=== PATIENT | male | born 1970 | race African-American/Black ===

== ENCOUNTER 2018-08-11 11:19 | Emergency (ER) | payer OTHER ==
[~2018-08-11] VITALS: Ht 185.4 cm; Wt 154.2 kg
[2018-08-11 11:30] VITALS: BP 134/77; Ht 185.4 cm; Wt 154.2 kg
== END 2018-08-11 12:31 | disposition home or self-care (01) ==
LOC: ED 11:19
DX: L97.919 Non-pressure chronic ulcer of unspecified part of right lower leg with unspecified severity (principal); I12.0 Hypertensive chronic kidney disease with stage 5 chronic kidney disease or end stage renal disease; N18.6 End stage renal disease; F17.210 Nicotine dependence, cigarettes, uncomplicated; Z99.2 Dependence on renal dialysis
CPT/HCPCS: 90715

== ENCOUNTER 2018-11-10 07:13 | Inpatient (IN) | payer OTHER, MEDICAID ==
[~2018-11-10] VITALS: Ht 185.4 cm; Wt 156.3 kg
[2018-11-10 07:17] VITALS: Ht 185.4 cm; Wt 156.3 kg
--- NOTE | 2018-11-10 07:27 | NUR ---
PT WAS B/B AMBULANCE FROM . FOR SHUNT BLEEDING ON RT ARM. PT WAS A/OX3. NO OTHER ACUTE DISTRESS.
--- NOTE | 2018-11-10 08:10 | NUR ---
HARD STICK. SL 24G ESTABLISHED ON MAL. MORPHINE WITH ZOFRAN IVP GIVEN FOR PAIN.
[2018-11-10 08:13] LABS: BASOPHIL % 0.1 % (0-2); PLATELET COUNT 158 x10^3mcL (130-400)
[2018-11-10 08:18] LABS: RED CELL DISTRIBUTION WIDTH 17.7 % (11.5-14.5)
[2018-11-10 08:30] LABS: BILIRUBIN TOTAL 0.39 mg/dL (0.20-1.00); CALCIUM 7.9 mg/dL (8.5-10.1); CARBON DIOXIDE 26.7 mmol/L (21-32); TOTAL PROTEIN, SERUM 7.4 g/dL (6.4-8.2)
[2018-11-10 08:39] LABS: ALBUMIN 3.2 g/dL (3.4-5.0)
[2018-11-10 08:40] LABS: CREATININE SERUM 13.9 mg/dL (0.7-1.3); POTASSIUM SERUM 5.9 mmol/L (3.5-5.1)
[2018-11-10] MEDS ORDERED: AURYXIA1 GM PO (09:48)
[2018-11-10] MEDS ORDERED: ASPIR 8181 MG PO (09:48)
[2018-11-10] MEDS ORDERED: PROA PO (09:49)
[2018-11-10] MEDS ORDERED: ELIQUIS5 MG PO (09:50)
[2018-11-10] MEDS ORDERED: DIAZEPAM5 MG PO (09:50)
[2018-11-10] MEDS ORDERED: FOSRENOL500 MG PO (09:51)
--- NOTE | 2018-11-10 10:13 | NUR ---
REPORT GIVEN TO [facility]. PT WAS ADMINISTERED TO TELE [id number].
--- NOTE | 2018-11-10 10:35 | NUR ---
RECEIVD PT FROM ED VIA JEANNA, ASSISTED BY NURSING STAFF AND ARIEL, PT IN NO ACUTE DISTRESS, AXOX4, VERBAL, PASHTO, ABLE TO MAKE NEEDS KNOWN, CALM AND COPPERATIVE AT THIS TIME, PERRLA, NO REDNESS/DRAINAGE, RESP PERI, NO SOB/COUGH, DIM BLL, 2L/MIN, NC, CHEST RISE SYMMETRICALLY, DENIED CP/PRESSURE/EVANS, DENIED N/V/D, ABD ROUND AND NON-TENDER TO TOUCH, BS ACTIVE X 4, LAST BM TODAY 11/10/18, ANURIA, HD TThS, SHUNT TO (R) THRILL/BRUIT (+), IV TO (L) AC PATENT AND NO INFILTRATION, PALP PULSES, CAP REFILL < 3S, SKIN D/W/C, USING WC FOR AMBULATION, WC BROGHT FROM HOME AT BEDSIDE, V/S: 175/102 (138), 97% AT 2L/MIN, 18, 98.1, 95, 6/10 PAIN GENERAL MUSCLE TENDON PAIN, DULL, ABLE TO MOVE ALL EXTREMITIES, ALL NEEDS ADDRESSED AT THIS TIME, SAFETY MONITOR, CONTINUE TO MONITOR
[2018-11-10 11:12] VITALS: BP 175/102
[2018-11-10 11:44] LABS: T3 TOTAL 0.98 ng/mL
[2018-11-10 11:45] VITALS: BP 132/76
--- NOTE | 2018-11-10 11:48 | NUR ---
PT IN NO ACUTE DISTRESS, PAIN /10 GENERAL MUSCLE TENDON PAIN, PRN MED MEDICATED IVP PER MD ORDER VIA EMAR, TAKEN WELL, NO SE NOTED AT THIS TIME, CONTINUE TO MONITOR
[2018-11-10 12:04] LABS: FREE T4 0.93 ng/dL (0.76-1.46); FREE THYROXINE INDEX 2.9 ug/dL (1.4-4.5); T4(THYROXINE) 8.2 ug/dL (4.7-13.3)
--- NOTE | 2018-11-10 12:33 | NUR ---
PT REFUSED BLOOD DRAW FOR LAB AND BLOOD CULTURE ORDER, AWARE OF RISK AND BENEFITS, STILL REFUSED, MD AND CHARGE NURSE MADE AWARE, FIANCE AT BEDSIDE
--- NOTE | 2018-11-10 14:02 | NUR ---
PT HAD HD AT BEDSIDE, TAKEN WELL AT THIS MOMENT
--- NOTE | 2018-11-10 16:28 | NUR ---
PT FINISHED HD, IN NO ACUTE DISTRESS, NO ACTIVE BLEEDING, BP-132/83 (99), HR-86, 97% AT 2L/MIN, NC, 18, 98.1, 10, TOLERABLE PAIN AT THIS TIME
[2018-11-10 17:24] VITALS: BP 151/86
--- NOTE | 2018-11-10 17:30 | NUR ---
PT IN BED, IN NO ACUTE DISTRESS, HD DONE, 1800CC REMOVED DURING 2.5HRS, PT REFUSED TO BE DIALIZED TOTAL 4HRS PER MD ORDER, SAID WILL HAVE ANOTHER HD TOMORROW, MADE AWARE, CHARGE NURSE GEORGE MADE AWARE
--- NOTE | 2018-11-10 18:16 | NUR ---
PT IN BED, IN NO ACUTE DISTRESS, NO ATIVE BLEEDING FROM HD SITE TO (R) SHUNT, THRILL/BRUIT (+), IV PATENT, NO INFILTRATION NOTED, RESP EVEN, NO SOB/COUGH, TELE, NSR, ABD ROUND AND NONN-TENDER TO TOUCH, PALP PULSES, CAP REFIL < 3S, ABLE TO MAKE NEEDS KNOWN, DRESSING CDI, ALL NEEDS ADDRESED AT THIS TIME, SAFETY MONITOR, WILL ENDORSE TO ONCOMING RN
--- NOTE | 2018-11-10 19:50 | NUR ---
PT IS A/O x4. ON TELE #11, NSR. DENIES ANY CHEST PAIN OR PRESSURE. PULSES ARE PRESENT. TRACE EDEMA NOTED ON BLE. AV SHUNT ON JANENE, THRILL AND BRUIT PRESENT. LUNGS CLEAR BUT DIMINISHED AT BASES. ON 2L NC. DENIES ANY SOB. EQUAL CHEST RISE AND FALL. NO SIGN OF RESP DISTRESS. BOWEL SOUNDS PRESENT x4. PER PT HE IS ANURIC. HAS PERSONAL WHEELCHAIR AT BEDSIDE. SKIN INTACT, OLD SCAR NOTED ON LLE. DENIES PAIN AT THIS TIME. SALINE LOCKED ON LAC, INTACT AND PATENT. BED IS AT LOWEST SETTING. CALL LIGHT WITHING REACH. WILL CONTINUE TO MONITOR.
[2018-11-10 20:29] VITALS: BP 150/89
[2018-11-11 05:38] VITALS: BP 153/94
--- NOTE | 2018-11-11 06:51 | NUR ---
PT IS RESTING IN BED. WAS COMPLAINING OF PAIN, PRN MEDICATION WAS GIVEN. PT STATES THE PAIN IS DECLINING TO A 5/10. NO ACUTE EVENT OCCURED AT NIGHT. BED IS AT LOWEST SETTING. CALL LIGHT WITHIN REACH. WILL ENDORSE TO AM NURSE.
--- NOTE | 2018-11-11 07:09 | NUR ---
RECEIVED REPORT FROM RAMON RN, PT IN NO ACUTE DISTRESS
--- NOTE | 2018-11-11 07:30 | NUR ---
PT IN BED, VERBAL, ABLE TO MAKE NEEDS KNOWN, PERRLA, DENIED CP/PRESSURE/PAIN, DENIED N/V/D, RESP EVEN, NO SOB/COUGH, DIM BLL, 2L/MIN NC, 96%, TELE, NSR, ABR ROUND AND NON-TENDER TO TOUCH, CAP REFILL < 3S, PALP PULSES, AMBULATORY W/ ASSIST AND WC, ANURIA, AV SHUNT TO (R) ARM PATENT, THRILL/BRUIT (+), IV PATENT AND NO INFILTRATION NOTED, HD TThS, FLUID RESTRICTION 1200ML/24HR, RENAL DIET, ALL NEEDS ADDRESSED AT THIS TIME, SAFETY MONITOR, CONTINUE TO MONITOR
[2018-11-11 08:05] VITALS: BP 130/95
--- NOTE | 2018-11-11 08:59 | NUR ---
PT IN NO ACUTE DISTRESS, AM MED GIVEN PER MD ORDER VAI EMAR, TAKEN WELL, NO ASE NOTED AT THIS TIME, CONTINUE TO MONITOR
--- NOTE | 2018-11-11 09:16 | NUR ---
PT CONCERNS ABOUT HD TODAY D/T FLUID OVERLOAD FEELING AT THIS MOMENT, [facility] CALLED AND TALKED TO CARISSA, SAID WILL CALL BACK WHEN HAVE AVAILABLE STAFF FOR HD COURTNEY, CHARGE NURSE GEORGE MADE AWARE
--- NOTE | 2018-11-11 10:28 | NUR ---
HD RN AT BEDSIDE, PT HAD HD NOW, VERIFIED W/ DR LORENZANA R/T LIDOCAIN IM INSTEAD OF TOPICALPER PT REQUEST PRIOR HD, VERIFIED BY PHARMACIST, PT IN NO ACUTE DISTRESS, LAB MADE AWARE TO COLLECT BLOOD FOR LAB ORDER W/ HD RN D/T PT REFUSED LAB THIS AM AND SAID TRISHA HAVE LAB DRAW DURING DIALYSIS, PT MADE AWARE, CHARGE NURSE GEORGE MADE AWARE
[2018-11-11 10:48] LABS: CALCIUM 7.6 mg/dL (8.5-10.1); CARBON DIOXIDE 26.1 mmol/L (21-32)
[2018-11-11 10:53] LABS: POTASSIUM SERUM 5.9 mmol/L (3.5-5.1)
[2018-11-11 10:54] LABS: CREATININE SERUM 13.6 mg/dL (0.7-1.3)
[2018-11-11 11:55] VITALS: BP 135/90
--- NOTE | 2018-11-11 12:59 | NUR ---
PT FINISHED HD, 3000ML FLUID REMOVED, TOLERATED WELL, IN NO ACUTE DISTRESS, REPORTED GENERALIZED PAIN, 10/20, MEDICATED PER PRN EMAR, TAKEN WELL, CONTINUE TO MONITOR
--- NOTE | 2018-11-11 14:41 | NUR ---
PT SLEEPING IN BED, IN NO APPARNT DISTRESS, ALL NEEDS ADDRESSED AT THIS TIME, SAFETY WATCHED, CONTINUE TO MONITOR
[2018-11-11 16:50] VITALS: BP 142/83
[2018-11-11 17:40] LABS: CALCIUM 8.2 mg/dL (8.5-10.1); CARBON DIOXIDE 30.9 mmol/L (21-32); POTASSIUM SERUM 5.3 mmol/L (3.5-5.1)
[2018-11-11 17:45] LABS: CREATININE SERUM 11.3 mg/dL (0.7-1.3)
--- NOTE | 2018-11-11 18:09 | NUR ---
PT IN BED, IN NO ACUTE DISTRESS, FAMILY AT BEDSIDE, VERBAL, ABLE TO MAKE NEEDS KNOWN, DENIED CP/PRESSURE/EVANS, DENIED N/V/D, RESP EVEN, NO SOB/COUGH, 2L/MIN, NC, 95%, TELE #11, ABD ROUND AND NON-TENDER TO TOUCH, AMULATORY W/ ASSIST AND WC, ANURIA, AV SHUNT PATENT, THRILL/BRUIT (+), IV PATENT AND NO INFILTRATION NOTED, ALL NEEDS ADDRESSED AT THIS TIME, SAFETY PROTOCOL FOLLOWED, WILL ENDORSE TO ONCOMING RN
--- NOTE | 2018-11-11 20:04 | NUR ---
SHIFT REASSESSMENT DONE.PATIENT ALERT AND ORIENTED.NOT IN RESP DISTRESS.O2 AT 2 LITERS.AMBULATORY,GEN WEAKNESS.HEPLOCC LAC 24 GUAGE.TELE 11 NSR.SKIN INTACT.TRACE EDEMA BLE.AV SHUNT R ARM,HD T TH SAT.STRICT I AND O.HAD HD 11/10 1800 ML OUT.TODAY 3000 ML OUT.CALL LIGHT IN REACH.
[2018-11-11 20:35] VITALS: BP 143/99
--- NOTE | 2018-11-11 21:12 | NUR ---
O2 SAT CHECKED 95% AT 2 LITERS,GIVEN PM MEDS,WANTING VALIUM PO FOR SLEEP.ALSO WANTING DILAUDID AFTER MIDNIGHT,Q 6 HOURS PRN.FAMILY WAS HERE,VERY SUPPORTIVE OF CARE.CALL LIGHT IN REACH.
--- NOTE | 2018-11-12 00:37 | NUR ---
PAIN MED GIVEN PRN Q 6 HOURS.SAYS PAIN IS ALL OVER.WANTED HIS ROOM SHUT.CALL LIGHT IN REACH.
--- NOTE | 2018-11-12 01:00 | NUR ---
PATIENT CALLED,WANTING HIS PAIN MED,REMINDED I JUST GIVE IT TO HIM,JUST FEW MINUTES AGO.REALITY AWARENESS GIVEN,HE FORGOT HE SAYS THAT I JUST GIVE IT TO HIM.
[2018-11-12 05:27] VITALS: BP 152/91
--- NOTE | 2018-11-12 05:57 | NUR ---
PATIENT I AND O MEASURED.ANURIC,STRICT I AND O.WILL ENDORSE TO NEXT SHIFT.WANTING DILAUDID BEFORE 7 AM.
[2018-11-12 06:29] LABS: CALCIUM 8.4 mg/dL (8.5-10.1); CARBON DIOXIDE 31.1 mmol/L (21-32); MAGNESIUM 2.4 mg/dL (1.8-2.4)
[2018-11-12 06:39] LABS: BASOPHIL % 0.3 % (0-2); PLATELET COUNT 152 x10^3mcL (130-400)
[2018-11-12 07:18] LABS: CREATININE SERUM 13.8 mg/dL (0.7-1.3); PHOSPHOROUS 9.6 mg/dL (2.5-4.9)
[2018-11-12 07:34] LABS: RED CELL DISTRIBUTION WIDTH 18.1 % (11.5-14.5)
--- NOTE | 2018-11-12 07:39 | NUR ---
RECEIVED IN NO RESP. DISTRESS. AWAKE AND ALERT. BP SLIGHTLY ELEVETED BUT PT ASYMPTOMATIC. DENIES CHEST DISCOMFORT. HL PATENT. CALL LIGHT WITHIN REACH. WILL CONTINUE WITH PLAN OF CARE.
--- NOTE | 2018-11-12 07:45 | NUR ---
RECEIVED ABNORMAL LAB RESULTS OF K+ 6.0,BUN 65 AND CREAT 13.8, PHOS 9.6. RESULTS GIVEN TO ANAHI. NO ORDERS RECEIVED.
[2018-11-12 09:01] VITALS: BP 153/100
--- NOTE | 2018-11-12 12:42 | NUR ---
PT C/O PAIN TO AV SHINT, 12/20. MEDICATED WITH DILAUDID IVP PER ORDER. IN NO RESP. DISTRESS. CALL LIGHT WITHIN REACH.
[2018-11-12 13:39] VITALS: BP 155/94
--- NOTE | 2018-11-12 15:37 | NUR ---
DOSING ON AND OFF, NO ACUTE DISTRESS. NO C/O PAIN AT THIS TIME.
[2018-11-12 17:39] VITALS: BP 155/103
--- NOTE | 2018-11-12 17:57 | NUR ---
HEMODIALTYSIS STARTED AND IN PROGRESS. PT HASEEB. FAIRLY. NO ACUTE DISTRESS NOTED. NO C/O PAIN AT THIS TIME.
--- NOTE | 2018-11-12 18:40 | NUR ---
REMAINS IN NO DISTRESS, AWAKE AND ALERT. HD IN PROGRESS. NO C/O PAIN AT THIS TIME. FAMILY AT BEDSIDE. CALL LIGHT WITHIN REACH. WILL BE ENDORSED TO INCOMING SHIFT.
[2018-11-12 19:18] VITALS: BP 147/94
--- NOTE | 2018-11-12 19:54 | NUR ---
AWAKE AND ALERT, ORIENTED TO NAME, PLACE, TIME AND SITUATION. SPEECH CLEAR AND APPROPRIATE. HOB ELEVATED 45 DEG. HEMODIALYSIS ONGOING, NOTED DIALYSIS SHUNT TO RIGHT UPPER ARM IS ACCESSED. SALINE LOCK TO LEFT, 24 G. BREATHING EVEN AND UNLABORED
--- NOTE | 2018-11-12 21:01 | NUR ---
PT SAT ON CHAIR ASKED TO HAVE LINENS CHANGED. LINEN AND GOWN CHANGED. PT ASSISTED BACK TO BED. NO BLEEDING NOTED TO DIALYSIS SITE. DIALYSIS NURSE REPORTED FINAL BP AT END OF DIALYSIS OF 156/90, MD 90, NET 3000 ML OUT. PT AWAKE AND ALERT. FEMALE VISITOR IN ROOM
[2018-11-13 05:09] VITALS: BP 148/94
--- NOTE | 2018-11-13 05:47 | NUR ---
AWAKE AND ALERT, BREATHING EVEN AND UNLABORED ON 2LPM OF O2 VIA NC. HOB KEPT ELEVATED 30 DEG. SINUS RHYTHM ON TELE, HR 91/MIN. HOB ELEVATED 40 DEG. CALL LIGHT WITHIN EASY REACH.
--- NOTE | 2018-11-13 05:55 | NUR ---
STATED HAS PAIN TO HIS LEFT WRIST, STATED HE HURT IT A FEW DAYS AGO. NOT DUE FOR DILAUDID IVP UNTIL 0830H. REFUSED TYLENOL. PAGED DR. CORONEL.
--- NOTE | 2018-11-13 06:04 | NUR ---
INFORMED DR. CORONEL PT STATED HAVING LEFT WRIST PAIN, NOT DUE FOR DILAUDID.
--- NOTE | 2018-11-13 06:13 | NUR ---
PT STATED HIS RIGHT EYE HURTS, STATED HE RUBBED IT A FEW HOURS AGO. NO REDNESS NOTED, NO DRAINAGE NOTED. INFORMED DR. CORONEL.
[2018-11-13 06:34] LABS: BASOPHIL % 0.5 % (0-2); PLATELET COUNT 149 x10^3mcL (130-400)
[2018-11-13 06:49] LABS: RED CELL DISTRIBUTION WIDTH 17.3 % (11.5-14.5)
[2018-11-13 06:53] LABS: CALCIUM 8.2 mg/dL (8.5-10.1); CARBON DIOXIDE 31.8 mmol/L (21-32); MAGNESIUM 2.2 mg/dL (1.8-2.4); PHOSPHOROUS 8.3 mg/dL (2.5-4.9); POTASSIUM SERUM 5.2 mmol/L (3.5-5.1)
[2018-11-13 06:54] LABS: CREATININE SERUM 11.5 mg/dL (0.7-1.3)
--- NOTE | 2018-11-13 07:11 | NUR ---
RECEIVED PT FROM COMBAT SYSTEMS OPERATOR NURSE. PT IN BED SLEEPING, AROUSABLE, RESP E/U ON 2L NC. NO ACUTE DISTRESS NOTED. ON TELE 11 SHOWING NSR, HR: 90. SALINE LOCKED TO LAC W/ NO ERYTHEMA OR EDEMA. BED IN LOWEST POSITION AND CALL LIGHT WITHIN REACH. WILL CONTINUE TO MONITOR.
--- NOTE | 2018-11-13 07:15 | NUR ---
EYES CLOSED, SNORING LIGHTLY. BREATHING EVEN AND UNLABORED ON 2LPM OF O2 VIA NC. SALINE LOCK TO LEFT AC INTACT. CALL LIGHT WITHIN EASY REACH. NO BLEEDING NOTED TO DIALYSIS ACCESS SITE TO RIGHT UPPER ARM. DRESSING CDI. ENDORSED TO NURSE JUSTINE
[2018-11-13 08:49] VITALS: BP 147/100
--- NOTE | 2018-11-13 12:30 | NUR ---
PT RESTING IN BED, AOX4, RESP E/U ON 2L NC. C/O L WRIST PAIN 09/19. MEDICATED ORDERED PER EMAR, COMFORT MEASURES IMPLEMENTED. BED IN LOWEST POSITION AND CALL LIGHT WITHIN REACH. WILL CONTINUE TO MONITOR.
[2018-11-13 12:36] VITALS: BP 157/97
--- NOTE | 2018-11-13 17:30 | NUR ---
PT DISCHARGED. REVIEWED VISIT SUMMARY, EDUCATIONAL PACKET AND FOLLOW UP INSTRUCTIONS W/ PT. PT AOX4, RESP E/U ON RA, VS STABLE, REPORTED PAIN TO L WRIST BUT TOLERABLE, TAMIKO WRAP APPLIED. IV TO LAC REMOVED, CATH INTACT, GAUZE APPLIED. PT ESCORTED BY AND JIMMIE FLETCHER TO LOBBY VIA WHEELCHAIR W/ NO ACUTE INCIDENCE.
== END 2018-11-13 17:28 | disposition home or self-care (01) | DRG 314 ==
LOC: ED 07:13 → DU 09:39
PROVIDERS: Emergency Medicine; Internal Medicine; ADMIT Internal Medicine
DX: T82.858A Stenosis of other vascular prosthetic devices, implants and grafts, initial encounter (principal); N18.6 End stage renal disease; I13.2 Hypertensive heart and chronic kidney disease with heart failure and with stage 5 chronic kidney disease, or end stage renal disease; Z68.42 Body mass index [BMI] 45.0-49.9, adult; T82.838A Hemorrhage due to vascular prosthetic devices, implants and grafts, initial encounter; I50.9 Heart failure, unspecified; E11.65 Type 2 diabetes mellitus with hyperglycemia; E11.22 Type 2 diabetes mellitus with diabetic chronic kidney disease; E87.5 Hyperkalemia; E66.01 Morbid (severe) obesity due to excess calories; Z99.2 Dependence on renal dialysis; Z79.01 Long term (current) use of anticoagulants; Y82.8 Other medical devices associated with adverse incidents; Y92.009 Unspecified place in unspecified non-institutional (private) residence as the place of occurrence of the external cause
CPT/HCPCS: 83880; 84439; G0378; J1170; J2001; J2270; J2405; J7030; Q0092

== ENCOUNTER 2019-01-03 22:20 | Emergency (ER) | payer OTHER ==
[~2019-01-03] VITALS: Ht 185.4 cm; Wt 158.8 kg
[~2019-01-03 22:20] MED LIST: ASPIR 8181 MG PO; AURYXIA1 GM PO; DIAZEPAM5 MG PO; ELIQUIS5 MG PO; FOSRENOL500 MG PO; PROA PO
[2019-01-03 22:30] VITALS: Ht 185.4 cm; Wt 158.8 kg
[2019-01-03 23:46] LABS: BASOPHIL % 0.1 % (0-2); PLATELET COUNT 173 x10^3mcL (130-400)
[2019-01-03 23:47] LABS: RED CELL DISTRIBUTION WIDTH 16.5 % (11.5-14.5)
[2019-01-04 00:03] LABS: ALBUMIN 3.5 g/dL (3.4-5.0); BILIRUBIN TOTAL 0.3 mg/dL (0.20-1.00); CALCIUM 8.4 mg/dL (8.5-10.1); CARBON DIOXIDE 33.4 mmol/L (21-32); POTASSIUM SERUM 4.8 mmol/L (3.5-5.1); TOTAL PROTEIN, SERUM 8.2 g/dL (6.4-8.2)
[2019-01-04 00:17] LABS: CREATININE SERUM 9.8 mg/dL (0.7-1.3)
[2019-01-04 03:38] VITALS: BP 119/94
== END 2019-01-04 03:38 | disposition home or self-care (01) ==
LOC: ED 22:20
PROVIDERS: Emergency Medicine
DX: K21.9 Gastro-esophageal reflux disease without esophagitis (principal); J20.9 Acute bronchitis, unspecified; I50.9 Heart failure, unspecified; N18.9 Chronic kidney disease, unspecified
CPT/HCPCS: 83880; 87804; J3475; J7613; Q0092

== ENCOUNTER 2019-01-14 16:28 | Inpatient (IN) | payer OTHER ==
[~2019-01-14] VITALS: Ht 185.4 cm; Wt 162.1 kg
[2019-01-14 16:45] VITALS: Ht 185.4 cm; Wt 162.1 kg
[2019-01-14 18:36] LABS: BASOPHIL % 0.9 % (0-2)
[2019-01-14 18:50] LABS: RED CELL DISTRIBUTION WIDTH 15.4 % (11.5-14.5)
[2019-01-14 18:51] LABS: PLATELET COUNT 112 x10^3mcL (130-400)
[2019-01-14 18:58] LABS: ALBUMIN 3.4 g/dL (3.4-5.0); BILIRUBIN TOTAL 0.3 mg/dL (0.20-1.00); CALCIUM 7.9 mg/dL (8.5-10.1); POTASSIUM SERUM 4.6 mmol/L (3.5-5.1); TOTAL PROTEIN, SERUM 7.7 g/dL (6.4-8.2)
[2019-01-14 19:02] LABS: CREATININE SERUM 14.4 mg/dL (0.7-1.3)
[2019-01-14 22:26] VITALS: BP 147/81
[2019-01-15 00:06] VITALS: BP 147/81
[2019-01-15 05:02] VITALS: BP 134/87
[2019-01-15 06:29] LABS: BASOPHIL % 0.8 % (0-2); PLATELET COUNT 132 x10^3mcL (130-400)
[2019-01-15 06:38] LABS: RED CELL DISTRIBUTION WIDTH 16.5 % (11.5-14.5)
[2019-01-15 07:04] LABS: CALCIUM 7.8 mg/dL (8.5-10.1); MAGNESIUM 2.6 mg/dL (1.8-2.4); PHOSPHOROUS 8.4 mg/dL (2.5-4.9); POTASSIUM SERUM 5.1 mmol/L (3.5-5.1)
[2019-01-15 07:07] LABS: CREATININE SERUM 15.4 mg/dL (0.7-1.3)
[2019-01-15 07:28] VITALS: BP 131/86
[2019-01-15 12:02] VITALS: BP 145/95
[2019-01-15 15:38] VITALS: BP 125/79
[2019-01-15 21:15] VITALS: BP 143/83
[2019-01-16 06:15] VITALS: BP 137/89
[2019-01-16 06:24] LABS: BASOPHIL % 0.6 % (0-2)
[2019-01-16 06:47] LABS: CALCIUM 7.9 mg/dL (8.5-10.1); CARBON DIOXIDE 29.3 mmol/L (21-32); MAGNESIUM 2.3 mg/dL (1.8-2.4); PHOSPHOROUS 7.4 mg/dL (2.5-4.9)
[2019-01-16 06:48] LABS: PLATELET COUNT 125 x10^3mcL (130-400); RED CELL DISTRIBUTION WIDTH 15.6 % (11.5-14.5)
[2019-01-16 07:26] LABS: CREATININE SERUM 12.1 mg/dL (0.7-1.3); POTASSIUM SERUM 5.7 mmol/L (3.5-5.1)
[2019-01-16 08:16] VITALS: BP 151/75
[2019-01-16 11:40] VITALS: BP 135/81
[2019-01-16 14:41] VITALS: BP 141/76
[2019-01-16 16:08] VITALS: BP 132/84
[2019-01-16 21:24] VITALS: BP 124/53
[2019-01-17 04:19] LABS: AMPHETAMINE QUAL UR NONE DETECTED (See below)
[2019-01-17 05:49] VITALS: BP 151/91
[2019-01-17 08:16] VITALS: BP 153/95
[2019-01-17 10:22] LABS: BASOPHIL % 0.7 % (0-2)
[2019-01-17 10:23] LABS: PLATELET COUNT 104 x10^3mcL (130-400); RED CELL DISTRIBUTION WIDTH 15.7 % (11.5-14.5)
[2019-01-17 10:26] LABS: CALCIUM 7.9 mg/dL (8.5-10.1); CARBON DIOXIDE 29.7 mmol/L (21-32); POTASSIUM SERUM 5.4 mmol/L (3.5-5.1)
[2019-01-17 10:35] LABS: CREATININE SERUM 12.9 mg/dL (0.7-1.3)
[2019-01-17 11:45] VITALS: BP 149/91
[2019-01-17 13:19] VITALS: BP 149/91
[2019-01-17 16:52] VITALS: BP 147/90
[2019-01-17 21:40] VITALS: BP 150/86
[2019-01-18 06:30] VITALS: BP 142/88
[2019-01-18 08:28] VITALS: BP 141/77
[2019-01-18 12:12] VITALS: BP 156/76
[2019-01-18 16:25] VITALS: BP 106/80
[2019-01-18 21:36] VITALS: BP 140/85
[2019-01-19 05:30] VITALS: BP 116/71
[2019-01-19 08:57] VITALS: BP 114/67
[2019-01-19 10:11] VITALS: BP 123/88
[2019-01-19 12:29] VITALS: BP 122/75
[2019-01-19 14:28] LABS: BASOPHIL % 0.3 % (0-2)
[2019-01-19 14:29] LABS: PLATELET COUNT 117 x10^3mcL (130-400); RED CELL DISTRIBUTION WIDTH 15.8 % (11.5-14.5)
[2019-01-19 15:01] LABS: CALCIUM 7.9 mg/dL (8.5-10.1); CARBON DIOXIDE 27.1 mmol/L (21-32); POTASSIUM SERUM 5.1 mmol/L (3.5-5.1)
[2019-01-19 15:07] LABS: CREATININE SERUM 13.1 mg/dL (0.7-1.3)
[2019-01-19 16:52] VITALS: BP 113/72
[2019-01-19 20:55] VITALS: BP 120/72
[2019-01-20 06:01] VITALS: BP 144/92
[2019-01-20 09:18] VITALS: BP 142/80
[2019-01-20 12:14] VITALS: BP 127/76
[2019-01-20 16:33] VITALS: BP 87/55
[2019-01-20 17:45] VITALS: BP 107/75
[2019-01-20 21:09] VITALS: BP 124/75
[2019-01-21 05:35] VITALS: BP 119/79
[2019-01-21 09:28] VITALS: BP 98/50
[2019-01-21] MEDS ORDERED: PRO10I SQ (11:28)
[2019-01-21] MEDS ORDERED: ZES5 PO (11:29)
[2019-01-21] MEDS ORDERED: COR6 PO (11:29)
[2019-01-21] MEDS ORDERED: LIPI10 PO (11:30)
[2019-01-21] MEDS ORDERED: PHOS PO (11:32)
[2019-01-21] MEDS ORDERED: NEP PO (11:33)
[2019-01-21] MEDS ORDERED: NOVAPLUS ZOSYN50 M1 IV (11:34)
[2019-01-21 13:10] VITALS: BP 130/83
[2019-01-21 14:09] VITALS: BP 129/74
[2019-01-21 17:06] VITALS: BP 129/74
[2019-01-21 20:30] VITALS: BP 142/70
== END 2019-01-22 01:02 | DRG 640 ==
LOC: ED 16:28 → DU 19:57
PROVIDERS: Internal Medicine; ADMIT Internal Medicine
PROC: 5A1D70Z Performance of Urinary Filtration, Intermittent, Less than 6 Hours Per Day (ICD-10-PCS; principal; 2019-01-20)
DX: E87.70 Fluid overload, unspecified (principal); I50.43 Acute on chronic combined systolic (congestive) and diastolic (congestive) heart failure; N18.6 End stage renal disease; I13.2 Hypertensive heart and chronic kidney disease with heart failure and with stage 5 chronic kidney disease, or end stage renal disease; Z68.42 Body mass index [BMI] 45.0-49.9, adult; J20.9 Acute bronchitis, unspecified; E11.22 Type 2 diabetes mellitus with diabetic chronic kidney disease; E11.65 Type 2 diabetes mellitus with hyperglycemia; I25.10 Atherosclerotic heart disease of native coronary artery without angina pectoris; E66.01 Morbid (severe) obesity due to excess calories; Z99.2 Dependence on renal dialysis; Z79.82 Long term (current) use of aspirin; Z79.84 Long term (current) use of oral hypoglycemic drugs; Z86.718 Personal history of other venous thrombosis and embolism
CPT/HCPCS: 78598; 82962; 83880; 85378; 87804; 94150; 97110-GP; 97116-GP; A9540; G0378; J0885-EC; J1644; J2001; J2060; J2270; J2543; J7030; J7050; J7613; J7620; J7644; Q0092; Q9967

== ENCOUNTER 2019-04-02 14:20 | Inpatient (IN) | payer OTHER ==
[~2019-04-02] VITALS: Ht 188 cm; Wt 167.0 kg
[~2019-04-02 14:20] MED LIST changes: +COR6 PO; +LIPI10 PO; +NEP PO; +NOVAPLUS ZOSYN50 M1 IV; +PHOS PO; +PRO10I SQ; +ZES5 PO
[2019-04-02 14:23] VITALS: Ht 188 cm; Wt 167.0 kg
[2019-04-02 15:38] LABS: BASOPHIL % 0.1 % (0-2); PLATELET COUNT 156 x10^3mcL (130-400)
[2019-04-02 15:40] LABS: RED CELL DISTRIBUTION WIDTH 16.6 % (11.5-14.5)
[2019-04-02 16:26] LABS: CARBON DIOXIDE 32.1 mmol/L (21-32)
[2019-04-02 16:27] LABS: ALBUMIN 3.7 g/dL (3.4-5.0); BILIRUBIN TOTAL 0.59 mg/dL (0.20-1.00); CALCIUM 8.7 mg/dL (8.5-10.1); MAGNESIUM 2.3 mg/dL (1.8-2.4); TOTAL PROTEIN, SERUM 8.6 g/dL (6.4-8.2)
[2019-04-02 16:32] LABS: CREATININE SERUM 10.4 mg/dL (0.7-1.3)
[2019-04-02 20:08] VITALS: BP 151/87
[2019-04-02 21:58] VITALS: BP 151/87
[2019-04-03 06:05] VITALS: BP 147/84
[2019-04-03 06:37] LABS: BASOPHIL % 0.5 % (0-2); PLATELET COUNT 154 x10^3mcL (130-400)
[2019-04-03 06:55] LABS: RED CELL DISTRIBUTION WIDTH 16.4 % (11.5-14.5)
[2019-04-03 07:17] LABS: CARBON DIOXIDE 27.9 mmol/L (21-32)
[2019-04-03 07:18] LABS: CALCIUM 8.4 mg/dL (8.5-10.1)
[2019-04-03 07:19] LABS: MAGNESIUM 2.4 mg/dL (1.8-2.4)
[2019-04-03 07:24] LABS: CREATININE SERUM 12.5 mg/dL (0.7-1.3)
[2019-04-03 08:45] VITALS: BP 128/76
[2019-04-03 13:06] VITALS: BP 131/83
[2019-04-03 17:30] VITALS: BP 142/80
[2019-04-03 21:06] VITALS: BP 146/95
[2019-04-04 06:11] VITALS: BP 138/87
[2019-04-04 07:36] LABS: BASOPHIL % 0 % (0-2); PLATELET COUNT 113 x10^3mcL (130-400); RED CELL DISTRIBUTION WIDTH 16.3 % (11.5-14.5)
[2019-04-04 07:53] LABS: POTASSIUM SERUM 4.4 mmol/L (3.5-5.1)
[2019-04-04 07:54] LABS: MAGNESIUM 2.2 mg/dL (1.8-2.4); PHOSPHOROUS 7.9 mg/dL (2.5-4.9)
[2019-04-04 08:19] VITALS: BP 118/69
[2019-04-04 12:14] VITALS: BP 117/76
[2019-04-04 17:30] VITALS: BP 128/75
[2019-04-04 21:00] VITALS: BP 140/68
[2019-04-05 06:02] VITALS: BP 114/86
[2019-04-05 08:52] VITALS: BP 125/73
[2019-04-05 10:29] LABS: BASOPHIL % 0.1 % (0-2)
[2019-04-05 11:02] LABS: PLATELET COUNT 121 x10^3mcL (130-400); RED CELL DISTRIBUTION WIDTH 16.3 % (11.5-14.5)
[2019-04-05 11:34] LABS: CARBON DIOXIDE 29.5 mmol/L (21-32); POTASSIUM SERUM 5.5 mmol/L (3.5-5.1)
[2019-04-05 11:37] LABS: CALCIUM 7.4 mg/dL (8.5-10.1); CREATININE SERUM 14.2 mg/dL (0.7-1.3)
[2019-04-05 12:15] VITALS: BP 111/71
[2019-04-05 17:06] VITALS: BP 112/70
[2019-04-05 19:15] VITALS: BP 114/61
[2019-04-06 03:40] VITALS: BP 112/69
[2019-04-06 08:18] VITALS: BP 117/77
[2019-04-06 12:11] VITALS: BP 120/72
[2019-04-06 16:45] VITALS: BP 135/76
[2019-04-06 19:36] VITALS: BP 122/74
[2019-04-07 04:48] VITALS: BP 122/71
[2019-04-07 08:02] LABS: CALCIUM 8.4 mg/dL (8.5-10.1); CARBON DIOXIDE 26.3 mmol/L (21-32); MAGNESIUM 2.4 mg/dL (1.8-2.4); POTASSIUM SERUM 5.2 mmol/L (3.5-5.1)
[2019-04-07 08:07] LABS: BASOPHIL % 0.3 % (0-2); PLATELET COUNT 134 x10^3mcL (130-400)
[2019-04-07 08:12] LABS: CREATININE SERUM 14.9 mg/dL (0.7-1.3)
[2019-04-07 08:26] LABS: RED CELL DISTRIBUTION WIDTH 16.1 % (11.5-14.5)
[2019-04-07 08:42] VITALS: BP 130/64
[2019-04-07 08:43] VITALS: BP 130/83
[2019-04-07] MEDS ORDERED: ZITHROMAX TRI-500 MG PO (09:42)
[2019-04-07 11:53] VITALS: BP 133/66
[2019-04-07 13:17] VITALS: BP 118/78; BP 133/66
[2019-04-07 16:07] VITALS: BP 118/78
== END 2019-04-07 19:25 | disposition home or self-care (01) | DRG 280 ==
LOC: ED 14:20 → DU 17:54 → EDBEDREQ 17:56 → DU 19:53 → MU 04-05 14:02
PROVIDERS: Emergency Medicine; ADMIT Student in an Organized Health Care Education/Training Program
DX: I50.23 Acute on chronic systolic (congestive) heart failure (principal); I21.A1 Myocardial infarction type 2; N18.6 End stage renal disease; Z68.41 Body mass index [BMI] 40.0-44.9, adult; I12.0 Hypertensive chronic kidney disease with stage 5 chronic kidney disease or end stage renal disease; I42.9 Cardiomyopathy, unspecified; E11.22 Type 2 diabetes mellitus with diabetic chronic kidney disease; G47.30 Sleep apnea, unspecified; E66.01 Morbid (severe) obesity due to excess calories; Z99.2 Dependence on renal dialysis; Z99.81 Dependence on supplemental oxygen; Z79.01 Long term (current) use of anticoagulants; Z79.84 Long term (current) use of oral hypoglycemic drugs; Z86.718 Personal history of other venous thrombosis and embolism; Z91.19 Patient's noncompliance with other medical treatment and regimen; Z86.73 Personal history of transient ischemic attack (TIA), and cerebral infarction without residual deficits
CPT/HCPCS: 83880; 85378; 87804; 94150; 97110-GP; 97116-GP; G0378; J0456; J0696; J0885-EC; J2270; J7030; J7050; J7620

== ENCOUNTER 2019-05-28 12:53 | Emergency (ER) | payer OTHER ==
[~2019-05-28] VITALS: Ht 188 cm; Wt 158.8 kg
[~2019-05-28 12:53] MED LIST changes: +ADULT LOW DOSE81 MG PO; +BACTRIM DS1 TAB PO; +SENSIPAR30 M1 PO; +ZITHROMAX TRI-500 MG PO
[2019-05-28 13:07] VITALS: Ht 188 cm; Wt 158.8 kg
[2019-05-28 13:29] LABS: PLATELET COUNT 176 x10^3mcL (130-400); RED CELL DISTRIBUTION WIDTH 17.8 % (11.5-14.5)
[2019-05-28 13:39] LABS: ALBUMIN 3.5 g/dL (3.4-5.0); BILIRUBIN TOTAL 0.6 mg/dL (0.20-1.00); CALCIUM 8.6 mg/dL (8.5-10.1); CARBON DIOXIDE 34.5 mmol/L (21-32); POTASSIUM SERUM 4.7 mmol/L (3.5-5.1)
[2019-05-28 14:16] LABS: BAND NEUTROPHIL 71 % (0-10); BASOPHIL 0 % (0-2); SEGMENTED NEUTROPHILS 10 % (37-75); rbc morphology (normal/abnorm) ABNORMAL (NORMAL)
[2019-05-28 14:17] LABS: PLATELET MORPHOLOGY PLATELETS DECREASED
[2019-05-28 15:08] VITALS: BP 138/77
== END 2019-05-28 15:08 | disposition home or self-care (01) ==
LOC: ED 12:53
PROVIDERS: Emergency Medicine
DX: T82.838A Hemorrhage due to vascular prosthetic devices, implants and grafts, initial encounter (principal); R42 Dizziness and giddiness; R06.02 Shortness of breath; I50.9 Heart failure, unspecified; N19 Unspecified kidney failure; Z86.73 Personal history of transient ischemic attack (TIA), and cerebral infarction without residual deficits; Z99.2 Dependence on renal dialysis; Z98.890 Other specified postprocedural states; Z91.012 Allergy to eggs
CPT/HCPCS: 36415; Q0092